=== PATIENT | male | born 1995 | race Caucasian/White ===

== ENCOUNTER 2017-10-17 12:27 | Emergency (ER) | payer BC ==
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
--- NOTE | 2017-10-19 11:42 | CR ---
EXAM DATE: 10/17/17 PATIENT'S AGE: 21 Patient: KADY CHU Facility: [place], [place] Site . Site : 1995 Study: XRay Shoulder Left [id number]/25/2018 1:17:47 PM Ordering Physician: Stephan Vargas Final Report: Indication: Hurt playing football yesterday. Technique: Three views of the left shoulder were obtained. Comparison: None Findings: The humeral head is seated within the glenoid. No acute fracture or subluxation is identified. The joint spaces are well maintained. Impression: No acute fracture. Dictated by Emily Greer MD @ Oct 17 2017 1:26PM (Electronic Signature) Report Signed by Proxy. NARCISO
== END 2017-10-17 13:37 | disposition home or self-care (01) ==
LOC: MW.ED 12:27
DX: S40.012A Contusion of left shoulder, initial encounter (principal); W03.XXXA Other fall on same level due to collision with another person, initial encounter; Y93.61 Activity, american tackle football
CPT/HCPCS: 73030-26-LT; 73030-LT; 99283